=== PATIENT | female | born 1955 | race Caucasian/White ===

== ENCOUNTER 2016-10-31 10:42 | Emergency (ER) | payer MEDICAID ==
[~2016-10-31] VITALS: Ht 157.5 cm; Wt 79.6 kg
[~2016-10-31 10:42] MED LIST: MUSCLE RELAXER PO
[2016-10-31] MEDS ORDERED: ALBUTEROL/IPRATROPIUM 2.5MG/0.5MG, 3 ML NPPB SCH (11:30)
[2016-10-31] MEDS ORDERED: methylPREDNISolone SOD SUCC 125 MG/2 ML IVP ONE (11:30)
[2016-10-31] MEDS ORDERED: SODIUM CHLORIDE FLUSH 10ML SYR IVF ONE (11:30)
[2016-10-31] MEDS ORDERED: methylPREDNISolone SOD SUCC 125 MG/2 ML ONE (11:54)
[2016-10-31] MEDS ORDERED: ALBUTEROL/IPRATROPIUM 2.5MG/0.5MG, 3 ML ONE (11:55)
[2016-10-31 12:32] LABS: BLOOD UREA NITROGEN 12 mg/dL (7-18)
[2016-10-31 12:37] LABS: IS PT STATUS REG ER OR PRE ER? YES
[2016-10-31 15:39] VITALS: BP 112/60
[2016-10-31] MEDS ORDERED: OMNIPAQUE 350 MG/ML, 100ML BOTTLE ONE (19:41)
== END 2016-10-31 15:55 | disposition home or self-care (01) ==
LOC: ED 12:28
DX: J45.41 Moderate persistent asthma with (acute) exacerbation (principal); J20.9 Acute bronchitis, unspecified; M19.90 Unspecified osteoarthritis, unspecified site; F17.200 Nicotine dependence, unspecified, uncomplicated
CPT/HCPCS: 36415; 71020; 71275; 80048; 82040; 83605; 83880; 84484; 85025; 85379; 85610; 85730; 87040; 93005; 94640; 96374; 99285; J2930; Q9967; J7620

== ENCOUNTER → 2017-04-22 | Outpatient (CLI) | payer MEDICAID ==
[~2017-04-22] MED LIST changes: +OMNIPAQUE 350 MG/ML, 75ML BOTTLE ONE
== END | disposition home or self-care (01) ==
LOC: CFH 10:54
PROVIDERS: ATTEND Genetic Counselor, MS
DX: R91.8 Other nonspecific abnormal finding of lung field (principal); J98.11 Atelectasis
CPT/HCPCS: 71260; Q9967

== ENCOUNTER 2018-10-06 09:19 | Outpatient (CLI) | payer MEDICAID ==
[~2018-10-06 09:19] MED LIST changes: +ALBU2.5V NPPB; +AZIT500T5 PO; +CEFD300C37 PO; +FLUT1DIS3 INH; +GUAI200T3 PO; +NICO-487 TD; -OMNIPAQUE 350 MG/ML, 75ML BOTTLE ONE; +PRED10TA PO; +TIOT18CA INH
== END 2018-10-06 23:59 | disposition home or self-care (01) ==
LOC: CFH 09:19
PROVIDERS: ATTEND Genetic Counselor, MS
DX: Z12.31 Encounter for screening mammogram for malignant neoplasm of breast (principal)
CPT/HCPCS: 77063; 77067

== ENCOUNTER → 2019-04-06 | Outpatient (CLI) | payer MEDICAID ==
[~2019-04-06] MED LIST changes: +AZIT500T10 PO; -AZIT500T5 PO; -GUAI200T3 PO; +GUAI200T37 PO; +OMNIPAQUE 350 MG/ML, 75ML BOTTLE ONE
== END | disposition home or self-care (01) ==
LOC: RAD 16:04
PROVIDERS: ATTEND Genetic Counselor, MS
DX: R91.1 Solitary pulmonary nodule (principal); R93.89 Abnormal findings on diagnostic imaging of other specified body structures; R05 Cough
CPT/HCPCS: 71260; Q9967

== ENCOUNTER → 2019-05-10 | Outpatient (CLI) | payer MEDICAID ==
[~2019-05-10] MED LIST changes: -OMNIPAQUE 350 MG/ML, 75ML BOTTLE ONE
== END | disposition home or self-care (01) ==
LOC: CFH 14:42
PROVIDERS: ATTEND Internal Medicine Cardiovascular Disease
DX: I35.8 Other nonrheumatic aortic valve disorders (principal); J44.9 Chronic obstructive pulmonary disease, unspecified; Z72.0 Tobacco use
CPT/HCPCS: 93306

== ENCOUNTER → 2019-06-04 | Outpatient (CLI) | payer MEDICAID ==
[~2019-06-04] MED LIST changes: +REGADENOSON 0.4 MG/5 ML SYRINGE ONE
== END | disposition home or self-care (01) ==
LOC: CFH 07:54
PROVIDERS: ATTEND Internal Medicine Cardiovascular Disease
DX: I25.9 Chronic ischemic heart disease, unspecified (principal)
CPT/HCPCS: 78452; 93017; A9502; J2785

== ENCOUNTER 2019-06-21 08:14 | Day surgery (SDC) | payer MEDICAID ==
[2019-06-20 12:12] LABS: ANION GAP 3 mmol/L (5-15); CALCIUM 10.2 mg/dL (8.5-10.1); CHLORIDE 109 mmol/L (98-107); CREATININE 0.65 mg/dL (0.55-1.02)
[~2019-06-21] VITALS: Ht 160 cm; Wt 81.8 kg
[~2019-06-21 08:14] MED LIST changes: +GABA300C10 PO; +MULT-252 PO; +NAPR220C2 PO; -REGADENOSON 0.4 MG/5 ML SYRINGE ONE; +magnesium PO
[2019-06-21] MEDS ORDERED: ALBU1.25 NEB (08:30)
[2019-06-21] MEDS ORDERED: METO25TA91 PO (08:30)
[2019-06-21] MEDS ORDERED: GABA-827 PO (08:30)
[2019-06-21] MEDS ORDERED: GABA300C10 PO (08:30)
[2019-06-21] MEDS ORDERED: ALBU18HF INH (08:33)
[2019-06-21] MEDS ORDERED: SODIUM CHLORIDE 0.9% 1,000 ML IV SCH (08:43)
[2019-06-21 08:49] VITALS: BP 144/78
[2019-06-21] MEDS ORDERED: MIDAZOLAM 1 MG/ML, 5ML ONE (10:26)
[2019-06-21] MEDS ORDERED: FENTANYL PF 100 MCG/2ML ONE (10:26)
[2019-06-21] MEDS ORDERED: LIDOCAINE 2%, 20ML ONE (10:26)
[2019-06-21] MEDS ORDERED: NITROGLYCERIN 5 MG/ML, 10ML ONE (10:27)
== END 2019-06-21 15:45 | disposition home or self-care (01) ==
LOC: CACL 08:14
PROVIDERS: ATTEND Internal Medicine Cardiovascular Disease
DX: I25.10 Atherosclerotic heart disease of native coronary artery without angina pectoris (principal); I50.9 Heart failure, unspecified; E55.9 Vitamin D deficiency, unspecified; G25.81 Restless legs syndrome; G89.29 Other chronic pain; J44.9 Chronic obstructive pulmonary disease, unspecified; M19.90 Unspecified osteoarthritis, unspecified site; E78.5 Hyperlipidemia, unspecified; F17.210 Nicotine dependence, cigarettes, uncomplicated; Z79.899 Other long term (current) drug therapy; Z88.8 Allergy status to other drugs, medicaments and biological substances
CPT/HCPCS: 36415; 80048; 93458; 99156; 99157; C1769; C1894; J2250; J3010; Q9967

== ENCOUNTER 2020-08-15 12:32 | Outpatient (CLI) | payer MEDICARE ==
[~2020-08-15 12:32] MED LIST changes: +ALBU1.25 NEB; +ALBU18HF INH; +GABA-827 PO; +METO25TA91 PO; -NICO-487 TD; +NICO-587 TD
== END 2020-08-15 23:59 | disposition home or self-care (01) ==
LOC: CVU 12:32
PROVIDERS: ATTEND Internal Medicine Cardiovascular Disease
DX: I65.23 Occlusion and stenosis of bilateral carotid arteries (principal)
CPT/HCPCS: 93880